=== PATIENT | male | born 1980 | race Caucasian/White ===

== ENCOUNTER 2016-11-03 19:42 | Emergency (ER) | payer BC ==
[~2016-11-03 19:42] MED LIST: Ativan 2 MG/1 ML VIAL IV ONE
[2016-11-03] MEDS ORDERED: DIPRIVAN 200 MG/20 ML IV ONE (19:56)
[2016-11-03] MEDS ORDERED: DIPRIVAN 100ML BOTTLE 100 ML IV ONE (19:56)
[2016-11-03] MEDS ORDERED: Quelicin Fliptop 200 MG/10 ML IV ONE (19:56)
[2016-11-03] MEDS ORDERED: Zemuron 100 MG/10 ML IV ONE (19:56)
[2016-11-03] MEDS ORDERED: Amidate 20 MG/10 ML IV ONE (19:56)
[2016-11-03] MEDS ORDERED: Sodium Chloride 0.9% 1000 ML 1,000 ML IV SCH (20:30)
[2016-11-03 20:42] LABS: BASOPHIL % 0.3 % (0.0-0.4); Eosinophil % 2.6 % (0.00-5.0); Granulocytes % 67.4 % (36.0-66.0); Lymphocytes % 21.6 % (24.0-44.0); Mean Cell Volume 88.4 fl (78-100); Mean Corpuscular Hemoglobin 29.3 pg (26-32); Mean Platelet Volume 10.5 fl (6-9.5); Monocytes % 8.1 % (0.0-12.0); Platelet Count 247 K/mm3 (150-450); Red Blood Count 4.91 M/mm3 (4.1-5.6); Red Cell Distribution Width 13.1 % (11.5-14.0); White Blood Count 7.3 K/mm3 (4.0-10.5)
[2016-11-03 20:43] LABS: INR 1.04 (0.8-3.0); PROTIME 11.6 SECONDS (8.83-12.87)
[2016-11-03 20:45] LABS: PTT 32.4 SECONDS (24.1-36.1)
[2016-11-03] MEDS ORDERED: Ativan 2 MG/1 ML VIAL ONE ×2 (20:51→22:02)
--- NOTE | 2016-11-03 20:51 | ERPHSYRPT ---
- History of Present Illness Time Seen by Provider: 11/03/16 19:42 Source: EMS Exam Limitations: clinical condition Patient Subjective Stated Complaint: 1916 pt was at home with family when he began choking the family began himleich and chest thrust without releif there was a time when he was not breathing ems arr and tried to intubate but pt was gagging then begaN TO HAVE SEIZURE LIKE ACTIVITY Triage Nursing Assessment: PT ARR UNRSPONSIVE THEN BEGAN SEIZING Physician History: Pt. arrived with GCS 7 and sonorous resp effort. He is unable to protect his airway despite adequate oxygenation. No awareness by EMS, who are also family, that he uses chronic pain meds or street drugs. Unknown downtime or hypoxic timeframe. EMS reports arrival to find pt. unresponsive, but were unable to intubate at the scene. Pt. intubated on arrival. O2 sats 100% with Ambu. Family arrived and reported that after he began to choke, they laid him on floor with Heimlich maneuvers attempted per family members. No relief and pt. unresponsive without respiratory efforts. EMS was called. Pt. noted by them to have seizure-like activity, which continued on arrival here. Timing/Duration: hour(s) (1) Activities at Onset: other (eating scalloped potatoes) Severity of Dyspnea-Max: severe Severity of Dyspnea-Current: severe Possible Cause: no prior episodes Modifying Factors: Improves With: other (choking after ) Associated Symptoms: No chest pain/discomfort International travel in last 2 weeks: No Allergies/Adverse Reactions: fentanyl Allergy (Verified 11/03/16 20:19) Home Medications: No Home Meds 1 ea POLI ERICKSON 04/15/15 [History] Hx Tetanus, Diphtheria Vaccination/Date Given: Yes (UNKNOWN) Hx Influenza Vaccination/Date Given: Yes Hx Pneumococcal Vaccination/Date Given: Yes - Review of Systems Constitutional: No Symptoms Eyes: No Symptoms Ears, Nose, & Throat: No Symptoms Respiratory: Cough Cardiac: No Symptoms, No Chest Pain Abdominal/Gastrointestinal: No Symptoms Musculoskeletal: No Symptoms Skin: No Symptoms Neurological: No Symptoms Psychological: No Symptoms Endocrine: No Symptoms Hematologic/Lymphatic: No Symptoms Immunological/Allergic: No Symptoms - Past Medical History Pertinent Past Medical History: Yes Neurological History: No Pertinent History ENT History: No Pertinent History Cardiac History: No Pertinent History Respiratory History: No Pertinent History Endocrine Medical History: No Pertinent History Musculoskeletal History: Other GI Medical History: No Pertinent History History: No Pertinent History Psycho-Social History: No Pertinent History Male Reproductive Disorders: No Pertinent History Other Medical History: BACK PROBLEMS - Past Surgical History Past Surgical History: No - Social History Smoking Status: Unknown if ever smoked Exposure to second hand smoke: No Drug Use: none Patient Lives Alone: No - Nursing Vital Signs Nursing Vital Signs: Initial Vital Signs Temperature 97.5 F Temperature Source Oral Pulse Rate 80 Respiratory Rate 16 Blood Pressure [] 122/61 Pain Intensity 0 - Physical Exam General Appearance: severe distress, lethargy, other (unresponsice) Eye Exam: PERRL/EOMI, eyes nml inspection Ears, Nose, Throat Exam: normal ENT inspection, normal pharynx Neck Exam: normal inspection, non-tender, supple, full range of motion Respiratory Exam: airway intact, other (sonorous resp with gurgling secretions) Cardiovascular/Chest Exam: normal heart sounds, regular rate/rhythm, normal peripheral pulses Abdominal/Gastrointestinal Exam: soft, normal bowel sounds Extremity Exam: non-tender, normal range of motion, normal inspection Neurologic Exam: No oriented x 3 Skin Exam: normal color Lymphatic Exam: adenopathy SpO2 Interpretation: normal SpO2: 89 Procedures - Intubation Intubation Indications: airway protection Intubation Method: orotracheal, glidescope Tube Size (cm): 7.5 Medications: Lorazepam (Ativan), Etomidate, Succinylcholine C-Spine: maintained Endotracheal Tube Confirmation: bilateral breath sounds, positive end tidal CO2 , good rise & fall of chest Intubation Complications: no complications Performed By: ED Physician Post Intubation Xray: Yes - Course Nursing assessment & vital signs reviewed: Yes EKG Interpreted by Me: RATE, Sinus Tach (114), NORMAL AXIS, Right Bundle Branch Block, Other (No acute ischemic changes. No old ECG for comparison) - CT Exams Head CT Interpretation: Negative, Tele-radiologist Report Ordered Tests: Active Orders 24 hr Category Date Time Status Ramp Agent STAT Care 11/03/16 20:29 Active Catheter-[place] STAT Care 11/03/16 20:29 Active EKG-ER Only STAT Care 11/03/16 20:29 Active Gastric Tube Insertion STAT Care 11/04/16 01:28 Active IV Insertion STAT Care 11/03/16 20:29 Active NPO (ED) STAT Care 11/03/16 20:29 Active Pulse Oximetry (ED) STAT Care 11/03/16 20:29 Active CHEST 1 VIEW (PORTABLE) Stat Exams 11/03/16 20:00 Taken ACETAMINOPHEN Stat Lab 11/03/16 20:15 Completed ARTERIAL BLOOD GASES Urgent Lab 11/03/16 19:54 Completed CBC W DIFF Stat Lab 11/03/16 20:15 Completed NT PRO BNP Stat Lab 11/03/16 20:15 Completed PROTIME WITH INR Stat Lab 11/03/16 20:15 Completed PTT Stat Lab 11/03/16 20:15 Completed SALICYLATE Stat Lab 11/03/16 20:15 Completed TROPONIN Stat Lab 11/03/16 20:15 Completed UA W/ MICROSCOPIC Stat Lab 11/03/16 21:15 Completed Urine Triage Profile Stat Lab 11/03/16 21:15 Completed Medication Summary Generic Name Dose Route Start Last Admin Trade Name Freq PRN Reason Stop Dose Admin Sodium Chloride 1,000 mls @ 100 mls/hr 11/04/16 04:15 11/03/16 20:40 Sodium Chloride 0.9% 1000 Ml IV 12/04/16 04:14 100 mls/hr .Q10H GERALDO Administration Discontinued Medications Generic Name Dose Route Start Last Admin Trade Name Freq PRN Reason Stop Dose Admin Fosphenytoin Sodium Confirm 11/03/16 21:09 Cerebyx 50 Mg/Ml Administered 11/03/16 21:10 Dose 1,000 mg .ROUTE .STK-MED ONE Hydromorphone HCl Confirm 11/03/16 22:10 Hydromorphone 1 Mg/Ml Ampule Administered 11/03/16 22:11 Dose 1 mg .ROUTE .STK-MED ONE Hydromorphone HCl 1 mg 11/03/16 22:12 11/04/16 04:01 Hydromorphone 1 Mg/Ml Ampule IV 11/03/16 22:13 Not Given STAT ONE Hydromorphone HCl Confirm 11/03/16 22:42 Hydromorphone 1 Mg/Ml Ampule Administered 11/03/16 22:43 Dose 1 mg .ROUTE .STK-MED ONE Sodium Chloride 1,000 mls @ 100 mls/hr 11/03/16 20:30 11/03/16 19:53 Sodium Chloride 0.9% 1000 Ml IV 12/03/16 20:29 100 mls/hr .Q10H GERALDO Administration Sodium Chloride Confirm 11/03/16 21:12 Sodium Chloride 0.9% 100 Ml Ivpb Administered 11/03/16 21:13 Dose 100 mls @ ud IV .STK-MED ONE Fosphenytoin Sodium 1,000 mg/ 120 mls @ 240 mls/hr 11/03/16 21:13 11/03/16 21 :16 Sodium Chloride IV 11/03/16 21:42 240 mls/hr STAT ONE Administration Lorazepam Confirm 11/03/16 20:51 Ativan 2 Mg/1 Ml Vial Administered 11/03/16 20:52 Dose 2 mg .ROUTE .STK-MED ONE Lorazepam Confirm 11/03/16 22:02 Ativan 2 Mg/1 Ml Vial Administered 11/03/16 22:03 Dose 2 mg .ROUTE .STK-MED ONE Ondansetron HCl 4 mg 11/03/16 22:12 11/04/16 04:02 Zofran 4 Mg/2 Ml Vial IV 11/03/16 22:13 Not Given STAT ONE Pantoprazole Sodium 40 mg 11/03/16 22:12 11/04/16 04:02 Protonix 40 Mg Iv IV 11/03/16 22:13 Not Given STAT ONE Phenytoin Sodium Confirm 11/03/16 20:55 Dilantin 100 Mg/2 Ml Administered 11/03/16 20:56 Dose 100 mg .ROUTE .STK-MED ONE Lab/Rad Data: Laboratory Result Diagrams 11/03/16 20:15 Laboratory Results 11/03/16 11/03/16 11/03/16 Range/Units 21:15 21:15 20:15 WBC (4.0-10.5) K/mm3 RBC (4.1-5.6) M/mm3 Hgb (12.5-18.0) gm/dl Hct (42-50) % MCV (78-100) fl MCH (26-32) pg MCHC (32-36) g/dl RDW (11.5-14.0) % Plt Count (150-450) K/mm3 MPV (6-9.5) fl Gran % (36.0-66.0) % Lymphocytes % (24.0-44.0) % Monocytes % (0.0-12.0) % Eosinophils % (0.00-5.0) % Basophils % (0.0-0.4) % Basophils # (0-0.4) INR 1.04 (0.8-3.0) PTT 32.4 (24.1-36.1) SECONDS Puncture Site pCO2 (35-45) mmHg pO2 (75-100) mmHg Base Excess (-2.0-2.0) O2 Saturation (94-100) g/dF ABG pH (7.35-7.45) ABG HCO3 (22-28) ABG O2 Sat (Measured) (95-100) % Javier Test A-a Gradient a/A Ratio Hemoglobin Carboxyhemoglobin (0.0-6.9) % THgb Methemoglobin (1.4-1.5) % Potassium (3.5-5.1) Temperature C POC O2 Flow Rate % Troponin I (0.000-0.056) ng/ml NT-Pro-B Natriuret Pep (0-125) pg/ml Ur Collection Type CLEAN CATCH Urine Color YELLOW (YELLOW) Urine Appearance CLEAR (CLEAR) Urine pH 6.0 (5-6) Ur Specific Ajo 1.025 (1.005-1.025) Urine Protein NEGATIVE (Negative) Urine Glucose (UA) NEGATIVE (NEGATIVE) mg/dL Urine Ketones NEGATIVE (NEGATIVE) Urine Nitrite NEGATIVE (NEGATIVE) Urine Bilirubin NEGATIVE (NEGATIVE) Urine Urobilinogen 0.2 (0-1) mg/dL Urine WBC (Auto) NEGATIVE (NEGATIVE) Urine RBC (Auto) TRACE NON-HEM (0-5) Brennen/ul Urine Microscopic RBC 0-2 (0-2) /HPF Ur Epithelial Cells FEW (FEW) /HPF Salicylates (2.8-20.0) mg/dl Urine Opiates Level NEG. (NEGATIVE) Ur Methadone NEG. (NEGATIVE) Acetaminophen (10-30) ug/ml Urine Barbiturates NEG. (NEGATIVE) Ur Phencyclidine (PCP) NEG. (NEGATIVE) Urine Amphetamine NEG. (NEGATIVE) U Benzodiazepine Level POS. (NEGATIVE) Urine Cocaine NEG. (NEGATIVE) Urine Marijuana (THC) NEG. (NEGATIVE) Specimen Received 11/03/16:212911/03/16 11/03/16 11/03/16 Range/Units 20:15 20:15 19:54 WBC 7.3 (4.0-10.5) K/mm3 RBC 4.91 (4.1-5.6) M/mm3 Hgb 14.4 (12.5-18.0) gm/dl Hct 43.4 (42-50) % MCV 88.4 (78-100) fl MCH 29.3 (26-32) pg MCHC 33.2 (32-36) g/dl RDW 13.1 (11.5-14.0) % Plt Count 247 (150-450) K/mm3 MPV 10.5 H (6-9.5) fl Gran % 67.4 H (36.0-66.0) % Lymphocytes % 21.6 L (24.0-44.0) % Monocytes % 8.1 (0.0-12.0) % Eosinophils % 2.6 (0.00-5.0) % Basophils % 0.3 (0.0-0.4) % Basophils # 0.02 (0-0.4) INR (0.8-3.0) PTT (24.1-36.1) SECONDS Puncture Site RIGHT BRACHIAL pCO2 38 (35-45) mmHg pO2 255 H* (75-100) mmHg Base Excess 2.4 H (-2.0-2.0) O2 Saturation 97.6 (94-100) g/dF ABG pH 7.45 (7.35-7.45) ABG HCO3 26.4 (22-28) ABG O2 Sat (Measured) 98.9 (95-100) % Javier Test NOT APPLICABLE A-a Gradient 411 a/A Ratio 0.38 Hemoglobin 14.1 Carboxyhemoglobin 0.5 (0.0-6.9) % THgb Methemoglobin 0.8 L (1.4-1.5) % Potassium 3.7 (3.5-5.1) Temperature 37.0 C POC O2 Flow Rate 100 % Troponin I < 0.017 (0.000-0.056) ng/ml NT-Pro-B Natriuret Pep 45 (0-125) pg/ml Ur Collection Type Urine Color (YELLOW) Urine Appearance (CLEAR) Urine pH (5-6) Ur Specific Ajo (1.005-1.025) Urine Protein (Negative) Urine Glucose (UA) (NEGATIVE) mg/dL Urine Ketones (NEGATIVE) Urine Nitrite (NEGATIVE) Urine Bilirubin (NEGATIVE) Urine Urobilinogen (0-1) mg/dL Urine WBC (Auto) (NEGATIVE) Urine RBC (Auto) (0-5) Brennen/ul Urine Microscopic RBC (0-2) /HPF Ur Epithelial Cells (FEW) /HPF Salicylates < 2.8 L (2.8-20.0) mg/dl Urine Opiates Level (NEGATIVE) Ur Methadone (NEGATIVE) Acetaminophen < 2.0 L (10-30) ug/ml Urine Barbiturates (NEGATIVE) Ur Phencyclidine (PCP) (NEGATIVE) Urine Amphetamine (NEGATIVE) U Benzodiazepine Level (NEGATIVE) Urine Cocaine (NEGATIVE) Urine Marijuana (THC) (NEGATIVE) Specimen Received - Progress Progress: improved Air Movement: good Blood Culture(s) Obtained: No Antibiotics given: No Discussed with Dr.: Other (No Neurolgist at [facility], so referred elsewhere for transfer. Weather precludes helicopter transfer. ) Counseled pt/family regarding: lab results, diagnosis, need for follow-up ( discussed with family. ), rad results - Departure Time of Disposition: 23:55 Departure Disposition: Transfer (To [facility] ICU for Dr. Amaral) Clinical Impression: Choking episode, Seizure, Hypoxic encephalopathy Condition: Stable Critical Care Time: Yes Critical Care Time(excluding separately billable procedures): 75-104 minutes Referrals: CHAPO RODRIGUEZ [Primary Care Provider] -
[2016-11-03] MEDS ORDERED: Dilantin 100 MG/2 ML ONE (20:55)
[2016-11-03 21:04] LABS: ACETAMINOPHEN < 2.0 ug/ml (10-30); TROPONIN < 0.017 ng/ml (0.000-0.056)
[2016-11-03] MEDS ORDERED: cereBYX 50 MG/ML ONE (21:09)
[2016-11-03] MEDS ORDERED: Sodium Chloride 0.9% 100 ML IVPB 100 ML IV ONE (21:12)
[2016-11-03 21:13] LABS: A-aADO2 411; ARTERIAL BLD GAS O2 SATURATION 98.9 % (95-100); ARTERIAL BLOOD GAS BASE EXCESS 2.4 (-2.0-2.0); ARTERIAL BLOOD GAS FIO2 100 %; ARTERIAL BLOOD GAS PO2 255 mmHg (75-100); ARTERIAL BLOOD GAS pH 7.45 (7.35-7.45)
[2016-11-03] MEDS ORDERED: cereBYX 50 MG/ML*** 1,000 MG in Sodium Chloride 0.9% 100 ML IVPB 100 ML IV ONE (21:13)
[2016-11-03 21:47] LABS: COMPLETE URINE MICROSCOPIC? YES; Collection Type CLEAN CATCH; Epithelial Cells FEW /HPF (FEW)
[2016-11-03] MEDS ORDERED: Hydromorphone 1 mg/ml Ampule ONE ×2 (22:10→22:42)
[2016-11-03] MEDS ORDERED: PROTONIX 40 MG IV IV ONE (22:12)
[2016-11-03] MEDS ORDERED: Hydromorphone 1 mg/ml Ampule IV ONE (22:12)
[2016-11-03] MEDS ORDERED: Zofran 4 MG/2 ML VIAL IV ONE (22:12)
[2016-11-03 22:30] VITALS: BP 122/61; PULSE 80
[2016-11-04] MEDS ORDERED: Sodium Chloride 0.9% 1000 ML 1,000 ML IV SCH (04:15)
[2016-11-04 07:05] VITALS: O2SAT 89
--- NOTE | 2016-11-04 08:05 | XRAY ---
Indication: Unresponsive. Multiple contiguous axial images obtained through the head without contrast. Comparison: October 26, 2007. Again normal appearing brain parenchyma, ventricles, and bony calvarium. Visualized paranasal sinuses and mastoid air cells are pneumatized and clear. Impression: Stable normal CT head without contrast exam. CTDI 67.80
--- NOTE | 2016-11-04 08:08 | XRAY ---
Indication: Intubation. Comparison: September 21, 2014. Portable chest demonstrates endotracheal tube tip approximately 3 cm above the severo. Lungs underinflated accentuating the cardiomegaly structures. There is asymmetric diffuse left lung interstitial opacities. Heart is not enlarged. Bony thorax intact. Impression: 1. Status post intubation with good endotracheal tube placement. 2. Underinflated chest with left lung interstitial opacities, infiltrates versus atelectasis.
== END 2016-11-03 23:09 | disposition short-term general hospital (02) ==
LOC: ED 19:42
DX: R09.89 Other specified symptoms and signs involving the circulatory and respiratory systems (principal); R56.9 Unspecified convulsions; G93.1 Anoxic brain damage, not elsewhere classified; R53.83 Other fatigue; R59.9 Enlarged lymph nodes, unspecified
CPT/HCPCS: 31500; 36000; 36415; 36600; 51702; 70450; 71010; 80307; 81000; 82375; 82803; 83880; 84484; 85025; 85610; 85730; 93005; 93041; 94002; 94799; 96360; 96361; 96365; 96367; 99285; 99291; 99292; G0481; J0330; J1165; J1170; J2060; J2704; Q2009

== ENCOUNTER 2020-03-29 05:40 | Emergency (ER) | payer OTHER ==
[2020-03-29] MEDS ORDERED: BABY ASPIRIN 81 MG CHEW PO ONE (06:08)
--- NOTE | 2020-03-29 06:08 | ERPHSYRPT ---
- History of Present Illness Source: patient Exam Limitations: no limitations Patient Subjective Stated Complaint: pt states he had sudden onset of shortness of breath this morning while driving to work. states he coughed a few times yesterday and has been coughing this morning. Triage Nursing Assessment: pt alert and oriented, answers questions approp. pt ambulatory with steady gait noted. pt short of breath, lung sounds clear bilat. skin warm and dry. heart rate 90 on monitor- sinus rhythm. Timing/Duration: today, constant Activities at Onset: rest Severity of Dyspnea-Max: moderate Severity of Dyspnea-Current: moderate Possible Cause: no prior episodes Modifying Factors: Improves With: nothing Associated Symptoms: cough, chest pain/discomfort, No edema, No fever, No insomnia, No loss of appetite, No wheezing, No calf pain, No heart racing, No leg swelling, No muscle spasms feet, No muscle spasms hands Hx Tetanus, Diphtheria Vaccination/Date Given: Yes (2017) Hx Influenza Vaccination/Date Given: No Hx Pneumococcal Vaccination/Date Given: No Immunizations Up to Date: Yes <IVONNE COREY - Last Filed: 03/29/20 06:59> <STAR BRIZUELA - Last Filed: 03/29/20 21:09> - History of Present Illness Time Seen by Provider: 03/29/20 05:59 Physician History: Acute onset of SOB while going to work. Hurts to breathe. No fever. Mild Dry cough. No sputum (IVONNE COREY) Allergies/Adverse Reactions: fentanyl Allergy (Severe, Verified 03/29/20 05:57) Difficulty Breathing Iodinated Contrast Media Adverse Reaction (Mild, Verified 03/29/20 08:09) Hives Home Medications: No Home Meds [No Home Meds] 1 [facility] UD 04/15/15 [History] Travel Risk - International Travel Have you traveled outside of the country in past 3 weeks: No - Coronavirus Screening Are you exhibiting any of the following symptoms?: Yes Symptoms: Cough: New Onset, Shortness of Breath Close contact with a COVID-19 positive Pt in past 14-21 Days: No <IVONNE COREY - Last Filed: 03/29/20 06:59> - Review of Systems Constitutional: No Fever, No Chills Eyes: No Symptoms Ears, Nose, & Throat: No Symptoms Respiratory: Cough, Dyspnea Cardiac: No Chest Pain, No Edema, No Syncope Abdominal/Gastrointestinal: No Abdominal Pain, No Nausea, No Vomiting, No Diarrhea Genitourinary Symptoms: No Dysuria Musculoskeletal: No Back Pain, No Neck Pain Skin: No Rash Neurological: No Dizziness, No Focal Weakness, No Sensory Changes Psychological: No Symptoms Endocrine: No Symptoms All Other Systems: Reviewed and Negative <IVONNE COREY - Last Filed: 03/29/20 06:59> - Past Medical History Pertinent Past Medical History: Yes Neurological History: No Pertinent History ENT History: No Pertinent History Cardiac History: No Pertinent History Respiratory History: No Pertinent History Endocrine Medical History: No Pertinent History Musculoskeletal History: Other GI Medical History: No Pertinent History History: No Pertinent History Psycho-Social History: No Pertinent History Male Reproductive Disorders: No Pertinent History Other Medical History: BACK PROBLEMS - Past Surgical History Past Surgical History: No - Social History Smoking Status: Never smoker Exposure to second hand smoke: No Drug Use: none Patient Lives Alone: No <IVONNE COREY - Last Filed: 03/29/20 06:59> - Physical Exam General Appearance: no apparent distress, alert Eye Exam: PERRL/EOMI Neck Exam: normal inspection, supple Respiratory Exam: normal breath sounds, lungs clear, airway intact, No chest tenderness, No respiratory distress, No diminished breath sounds, No accessory muscle use, No prolonged expirations, No crackles/rales, No rhonchi, No wheezing Cardiovascular/Chest Exam: normal heart sounds, regular rate/rhythm Abdominal/Gastrointestinal Exam: soft, No tenderness, No distention, No mass Extremity Exam: non-tender, normal range of motion, normal inspection, no calf tenderness, no pedal edema Neurologic Exam: alert, oriented x 3, cooperative, clinical audiologist II-XII nml as tested, sensation nml, No motor deficits Skin Exam: normal color, warm, No dry Lymphatic Exam: No adenopathy SpO2 Interpretation: normal SpO2: 100 O2 Delivery: Room Air <IVONNE COREY Last Filed: 03/29/20 06:59> - Nursing Vital Signs Nursing Vital Signs: Initial Vital Signs Temperature 98.1 F 03/29/20 05:41 Pulse Rate 91 H 03/29/20 05:41 Respiratory Rate 24 03/29/20 05:41 Blood Pressure 137/83 03/29/20 05:41 O2 Sat by Pulse Oximetry 100 03/29/20 05:41 Pain Scale Pain Intensity 0 - Course EKG Interpreted by Me: RATE (79), Sinus Rhythm, NORMAL AXIS, NORMAL INTERVALS, NORMAL QRS, Non-specific ST Changes <IVONNE COREY - Last Filed: 03/29/20 06:59> - Course Nursing assessment & vital signs reviewed: Yes - CT Exams Chest CT Interpretation: Discussed w/radiologist, Other (PE noted posterior RUL-small nonocclusive) <STAR BRIZUELA - Last Filed: 03/29/20 21:09> Ordered Tests: Active Orders 24 hr Category Date Time Status Sulphate Tester STAT Care 03/29/20 06:09 Completed EKG-ER Only STAT Care 03/29/20 06:08 Completed IV Insertion STAT Care 03/29/20 06:08 Completed Oxygen-ED Only Nasal Cannula 2 lpm Care 03/29/20 06:08 Completed Pulse Oximetry (ED) STAT Care 03/29/20 06:08 Completed CHEST 1 VIEW (PORTABLE) Stat Exams 03/29/20 06:09 Completed CHEST WITH CONTRAST [CT] Stat Exams 03/29/20 06:57 Completed BLOOD CULTURE Stat Lab 03/29/20 06:39 Received CBC W DIFF Stat Lab 03/29/20 06:10 Completed CK-Creatinine Phosphokinase Stat Lab 03/29/20 06:10 Completed CMP Stat Lab 03/29/20 06:10 Completed CULTURE,URINE Stat Lab 03/29/20 08:00 Ordered D-DIMER QUANTITATIVE Stat Lab 03/29/20 06:10 Completed Lactic Acid Stat Lab 03/29/20 06:20 Completed NT PRO BNP Stat Lab 03/29/20 06:10 Completed PROTIME WITH INR Stat Lab 03/29/20 06:10 Completed PTT Stat Lab 03/29/20 06:10 Completed TROPONIN Stat Lab 03/29/20 06:10 Completed UA W/RFX UR CULTURE Stat Lab 03/29/20 Completed Medication Summary Discontinued Medications Generic Name Dose Route Start Last Admin Trade Name Freq PRN Reason Stop Dose Admin Aspirin 324 mg 03/29/20 06:08 03/29/20 06:20 Baby Aspirin 81 Mg Chew PO 03/29/20 06:09 324 mg STAT ONE Administration Diphenhydramine HCl 25 mg 03/29/20 07:39 03/29/20 07:45 Benadryl 50 Mg/Ml IV 03/29/20 07:40 25 mg STAT ONE Administration Diphenhydramine HCl Confirm 03/29/20 07:43 Benadryl 50 Mg/Ml Administered 03/29/20 07:44 Dose 50 mg .ROUTE .STK-MED ONE Enoxaparin Sodium 130 mg 03/29/20 07:00 03/29/20 07:47 Enoxaparin Sodium 1 mg/kg (130 mg) 03/29/20 07:01 Not Given SQ STAT ONE Enoxaparin Sodium Confirm 03/29/20 07:35 Enoxaparin Sodium Administered 03/29/20 07:36 Dose 120 mg SQ .STK-MED ONE Enoxaparin Sodium 120 mg 03/29/20 07:39 03/29/20 07:41 Enoxaparin Sodium SQ 03/29/20 07:40 120 mg 1XONLY ONE Administration Lab/Rad Data: Laboratory Result Diagrams 03/29/20 06:10 03/29/20 06:10 Laboratory Results 03/29/20 03/29/20 03/29/20 Range/Units Unknown 06:20 06:10 WBC (4.0-10.5) K/mm3 RBC (4.1-5.6) M/mm3 Hgb (12.5-18.0) gm/dl Hct (42-50) % MCV (78-100) fl MCH (26-32) pg MCHC (32-36) g/dl RDW (11.5-14.0) % Plt Count (150-450) K/mm3 MPV (7.5-11.0) fl Gran % (36.0-66.0) % Eos # (Auto) (0-0.5) Absolute Lymphs (auto) (1.0-4.6) Absolute Monos (auto) (0.0-1.3) Lymphocytes % (24.0-44.0) % Monocytes % (0.0-12.0) % Eosinophils % (0.00-5.0) % Basophils % (0.0-0.4) % Absolute Granulocytes (1.4-6.9) Basophils # (0-0.4) PT 11.8 (8.83-12.87) SECONDS INR 1.04 (0.8-3.0) APTT 31.1 (24.1-36.1) SECONDS D-Dimer 905 H* (215-500) ng/mL Sodium (137-145) mmol/L Potassium (3.5-5.1) mmol/L Chloride (98-107) mmol/L Carbon Dioxide (22-30) mmol/L Anion Gap (5-15) MEQ/L BUN (9-20) mg/dL Creatinine (0.66-1.25) mg/dL Estimated GFR ML/MIN Glucose (74-106) mg/dL Lactic Acid 2.0 (0.4-2.0) Calcium (8.4-10.2) mg/dL Total Bilirubin (0.2-1.3) mg/dL AST (17-59) U/L ALT (0-50) U/L Alkaline Phosphatase (38-126) U/L Creatine Kinase (55-170) U/L Troponin I (0.000-0.034) ng/mL NT-Pro-B Natriuret Pep (0-450) pg/mL Serum Total Protein (6.3-8.2) g/dL Albumin (3.5-5.0) g/dL Urine Color YELLOW (YELLOW) Urine Appearance CLEAR (CLEAR) Urine pH 5.0 (5-6) Ur Specific Gravelly 1.032 (1.005-1.025) Urine Protein NEGATIVE (Negative) Urine Ketones NEGATIVE (NEGATIVE) Urine Blood NEGATIVE (0-5) Brennen/ul Urine Nitrite NEGATIVE (NEGATIVE) Urine Bilirubin NEGATIVE (NEGATIVE) Urine Urobilinogen NEGATIVE (0-1) mg/dL Ur Leukocyte Esterase NEGATIVE (NEGATIVE) Urine WBC (Auto) 0-2 (0-5) /HPF Urine RBC (Auto) NONE (0-2) /HPF U Epithel Cells (Auto) NONE (FEW) /HPF Urine Bacteria (Auto) NONE (NEGATIVE) /HPF Urine Mucus (Auto) SLIGHT (NEGATIVE) /HPF Urine Culture Reflexed NO (NO) Urine Glucose NEGATIVE (NEGATIVE) mg/dL 03/29/20 03/29/20 Range/Units 06:10 06:10 WBC 6.9 (4.0-10.5) K/mm3 RBC 5.38 (4.1-5.6) M/mm3 Hgb 16.0 (12.5-18.0) gm/dl Hct 48.3 (42-50) % MCV 89.8 (78-100) fl MCH 29.7 (26-32) pg MCHC 33.1 (32-36) g/dl RDW 13.2 (11.5-14.0) % Plt Count 290 (150-450) K/mm3 MPV 10.0 (7.5-11.0) fl Gran % 76.1 H (36.0-66.0) % Eos # (Auto) 0.16 (0-0.5) Absolute Lymphs (auto) 1.10 (1.0-4.6) Absolute Monos (auto) 0.37 (0.0-1.3) Lymphocytes % 15.9 L (24.0-44.0) % Monocytes % 5.4 (0.0-12.0) % Eosinophils % 2.3 (0.00-5.0) % Basophils % 0.3 (0.0-0.4) % Absolute Granulocytes 5.26 (1.4-6.9) Basophils # 0.02 (0-0.4) PT (8.83-12.87) SECONDS INR (0.8-3.0) APTT (24.1-36.1) SECONDS D-Dimer (215-500) ng/mL Sodium 137 (137-145) mmol/L Potassium 3.8 (3.5-5.1) mmol/L Chloride 104 (98-107) mmol/L Carbon Dioxide 29 (22-30) mmol/L Anion Gap 7.9 (5-15) MEQ/L BUN 16 (9-20) mg/dL Creatinine 1.12 (0.66-1.25) mg/dL Estimated GFR > 60.0 ML/MIN Glucose 133 H (74-106) mg/dL Lactic Acid (0.4-2.0) Calcium 9.2 (8.4-10.2) mg/dL Total Bilirubin 0.40 (0.2-1.3) mg/dL AST 19 (17-59) U/L ALT 21 (0-50) U/L Alkaline Phosphatase 97 (38-126) U/L Creatine Kinase 69 (55-170) U/L Troponin I < 0.012 (0.000-0.034) ng/mL NT-Pro-B Natriuret Pep 29.6 (0-450) pg/mL Serum Total Protein 7.4 (6.3-8.2) g/dL Albumin 4.1 (3.5-5.0) g/dL Urine Color (YELLOW) Urine Appearance (CLEAR) Urine pH (5-6) Ur Specific Gravelly (1.005-1.025) Urine Protein (Negative) Urine Ketones (NEGATIVE) Urine Blood (0-5) Brennen/ul Urine Nitrite (NEGATIVE) Urine Bilirubin (NEGATIVE) Urine Urobilinogen (0-1) mg/dL Ur Leukocyte Esterase (NEGATIVE) Urine WBC (Auto) (0-5) /HPF Urine RBC (Auto) (0-2) /HPF U Epithel Cells (Auto) (FEW) /HPF Urine Bacteria (Auto) (NEGATIVE) /HPF Urine Mucus (Auto) (NEGATIVE) /HPF Urine Culture Reflexed (NO) Urine Glucose (NEGATIVE) mg/dL - Progress Air Movement: fair <IVONNE COREY - Last Filed: 03/29/20 06:59> - Progress Progress: improved Air Movement: good Blood Culture(s) Obtained: No Antibiotics given: No Discussed with : Juana Will see patient in: office Counseled pt/family regarding: lab results, diagnosis, need for follow-up, rad results <STAR BRIZUELA - Last Filed: 03/29/20 21:09> - Progress Progress Note: 03/29/20 06:59 Care of the pt transferred to Dr brizuela (IVONNE COREY) Pt better. NO O2 requirement. O2 sats [address] chest neg for any acute, no PE. Mentions small HH, fatty liver and splenomegaly. 03/29/20 08:31 03/29/20 21:07 Late entry, Dr. Garcia called to say that he does see a PE small nonocclusive RUL. Discussed with Dr. Zepeda and sts pt can be dc'd home and followed up with Dr. Benton in a few days. REcommends anticoag such as eliquis. Pt in agreement to go home. (STAR BRIZUELA) <IVONNE COREY - Last Filed: 03/29/20 06:59> - Departure Departure Disposition: Home Critical Care Time: Yes Critical Care Time(excluding separately billable procedures): Critical 30-74 mins <STAR BRIZUELA - Last Filed: 03/29/20 21:09> - Departure Clinical Impression: Dyspnea, Pulmonary embolus, right Condition: Stable Referrals: ROBBY GLYNN FNP [Primary Care Provider] - Instructions: Shortness of Breath (Dyspnea) (DC) Additional Instructions: MOnitor closely. Start Eliquius tomorrow. Follow up with Dr. Benton in 1-2 days for recheck. Return to ER if worse. Forms: Work/School Release Form Prescriptions: Apixaban [Eliquis] 10 mg PO BID 7 Days #30 tablet
[2020-03-29 06:47] LABS: Absolute Neutrophil Ct (ANC) 5.26 (1.4-6.9); BASOPHIL % 0.3 % (0.0-0.4); Basophil (Absolute #) 0.02 (0-0.4); Eosinophil % 2.3 % (0.00-5.0); Eosinophil (Absolute #) 0.16 (0-0.5); Hematocrit 48.3 % (42-50); Lymphocytes % 15.9 % (24.0-44.0); Mean Cell Volume 89.8 fl (78-100); Mean Corpuscular Hemoglobin 29.7 pg (26-32); Mean Corpuscular Hgb Concent. 33.1 g/dl (32-36); Monocyte (Absolute #) 0.37 (0.0-1.3); Monocytes % 5.4 % (0.0-12.0); Neutrophil % 76.1 % (36.0-66.0); Platelet Count 290 K/mm3 (150-450); Red Blood Count 5.38 M/mm3 (4.1-5.6); Red Cell Distribution Width 13.2 % (11.5-14.0); White Blood Count 6.9 K/mm3 (4.0-10.5)
[2020-03-29 06:53] LABS: INR 1.04 (0.8-3.0); PROTIME 11.8 SECONDS (8.83-12.87)
[2020-03-29 06:55] LABS: PTT 31.1 SECONDS (24.1-36.1)
[2020-03-29] MEDS ORDERED: ENOXAPARIN SODIUM SQ ONE ×3 (07:00→07:39)
[2020-03-29 07:10] LABS: ALBUMIN 4.1 g/dL (3.5-5.0); ALKALINE PHOSPHATASE 97 U/L (38-126); ANION GAP 7.9 MEQ/L (5-15); BLOOD UREA NITROGEN 16 mg/dL (9-20); CHLORIDE 104 mmol/L (98-107); CK-Creatinine Phosphokinase 69 U/L (55-170); Calcium 9.2 mg/dL (8.4-10.2); Carbon Dioxide 29 mmol/L (22-30); Creatinine 1 1.12 mg/dL (0.66-1.25); EST GLOMERULAR FILTRATION RATE > 60.0 ML/MIN; Glucose 133 mg/dL (74-106); NT PRO BNP 29.6 pg/mL (0-450); Potassium 3.8 mmol/L (3.5-5.1); SGOT/AST 19 U/L (17-59); SGPT/ALT 21 U/L (0-50); SODIUM 137 mmol/L (137-145); Total Protein 7.4 g/dL (6.3-8.2)
[2020-03-29 07:33] LABS: TROPONIN < 0.012 ng/mL (0.000-0.034)
[2020-03-29] MEDS ORDERED: BENADRYL 50 MG/ML IV ONE (07:39)
[2020-03-29] MEDS ORDERED: BENADRYL 50 MG/ML ONE (07:43)
[2020-03-29 08:02] VITALS: O2SAT 98
--- NOTE | 2020-03-29 08:51 | XRAY ---
Indication: Dyspnea. Comparison: July 05, 2018. Portable chest again demonstrates normal heart and lungs. Bony thorax intact with minimal degenerative changes. No new/acute findings.
--- NOTE | 2020-03-29 08:56 | XRAY ---
Indication: Short of breath and chest pain. Elevated d-dimer. Multiple contiguous axial images obtained through the chest using 100 cc Isovue 370 contrast and PE protocol. Comparison: None There is satisfactory opacification of the pulmonary arteries to include the lobar and segmental branches. Nonoccluding pulmonary embolus seen in the posterior segmental branch of the right upper lobe. Heart is not enlarged. Aorta is normal in course and caliber. No pathologic mediastinal/hilar lymphadenopathy. Small hiatal hernia. Lungs are inflated with minimal right middle lobe, lingula, and left base fibrosis/scarring. No suspicious pulmonary mass, infiltrate, or effusion. Bony thorax intact with minimal spinal degenerative changes. Limited upper abdomen demonstrates mild fatty liver and 14.6 cm splenomegaly. Impression: 1. Right upper lobe nonoccluding pulmonary embolus. 2. Incidental small hiatal hernia, fatty liver, and splenomegaly. Comment: Telephone report given to Dr. Cantor in the ER at 0848 hours on March 29, 2020.
[2020-03-29 09:03] VITALS: BP 119/80; PULSE 82
[2020-03-29 09:57] LABS: Appearance CLEAR (CLEAR); Bilirubin NEGATIVE (NEGATIVE); Blood NEGATIVE Ery/ul (0-5); Glucose NEGATIVE (NEGATIVE); Ketones NEGATIVE (NEGATIVE); Leukocyte Esterase NEGATIVE (NEGATIVE); Mucus SLIGHT /HPF (NEGATIVE); Nitrite NEGATIVE (NEGATIVE); Protein,Urine Dip NEGATIVE (Negative); Specific Gravity 1.032 (1.005-1.025); Urobilinogen NEGATIVE mg/dL (0-1); WBC 0-2 /HPF (0-5)
== END 2020-03-29 09:32 | disposition home or self-care (01) ==
LOC: ED 05:40
DX: R06.00 Dyspnea, unspecified (principal); I26.99 Other pulmonary embolism without acute cor pulmonale
CPT/HCPCS: 36000; 36415; 71045; 71260; 80053; 81001; 82550; 83605; 83880; 84484; 85025; 85379; 85610; 85730; 87040; 87086; 93005; 93041; 94760; 96372; 96374; 99284; 99291; J1200; J1650; A9270-GY

== ENCOUNTER 2024-06-05 21:40 | Emergency (ER) | payer MEDICAID, OTHER ==
[2024-06-05 21:53] VITALS: TEMP 97.8
--- NOTE | 2024-06-05 21:58 | ERPHSYRPT ---
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 At 8 PM he took three 200 mg ibuprofen. The paramedics placed an intravenous line and provided him with intravenous Zofran he still has significant pain in the right flank region. Patient's chart states that he is allergic to fentanyl which she agrees with. The chart states he is allergic to iodinated contrast dye/media. However, he disputes this. He has had this contrast dye in the past without adverse effect. Patient states that he is able to take morphine intravenously without adverse effects. Patient denies chest pain. Patient denies shortness of breath. He has had no vomiting but is nauseated. He has had no diarrhea symptoms. He does have a history of kidney stones in the past. Timing/Duration: today Quality: sharpness, stabbing Pain Radiation: flank (Right flank) Severity of Pain-Max: moderate Severity of Pain-Current: moderate Modifying Factors: Improves With: nothing Associated Symptoms: loss of appetite, nausea, No chest pain, No shortness of breath, No vomiting, No weakness Previous symptoms: same symptoms as today (More intense pain today than in the past) Allergies/Adverse Reactions: fentanyl Allergy (Severe, Verified 06/05/24 21:53) Difficulty Breathing Home Medications: No Home Meds [No Home Meds] 1 [facility] [employer] UD 04/15/15 [History] Hx Tetanus, Diphtheria Vaccination/Date Given: Yes (2017) Hx Influenza Vaccination/Date Given: No Hx Pneumococcal Vaccination/Date Given: No Travel Risk - International Travel Have you traveled outside of the country in past 3 weeks: No - Emerging Infectious Disease Are you exhibiting symptoms associated with any current EIDs: No - Review of Systems Constitutional: No Symptoms Eyes: No Symptoms Ears, Nose, & Throat: No Symptoms Respiratory: No Symptoms Cardiac: No Symptoms Abdominal/Gastrointestinal: No Symptoms Genitourinary Symptoms: Flank Pain (Right flank pain) Musculoskeletal: No Symptoms Skin: No Symptoms Neurological: No Symptoms Psychological: No Symptoms Endocrine: No Symptoms Hematologic/Lymphatic: No Symptoms Immunological/Allergic: No Symptoms All Other Systems: Reviewed and Negative - Past Medical History Pertinent Past Medical History: Yes Neurological History: No Pertinent History ENT History: No Pertinent History Cardiac History: No Pertinent History Respiratory History: No Pertinent History Endocrine Medical History: No Pertinent History Musculoskeletal History: Other GI Medical History: No Pertinent History History: No Pertinent History Psycho-Social History: No Pertinent History Male Reproductive Disorders: No Pertinent History Other Medical History: BACK PROBLEMS - Past Surgical History Past Surgical History: No - Social History Smoking Status: Never smoker Exposure to second hand smoke: No Drug Use: none Patient Lives Alone: No - Nursing Vital Signs Nursing Vital Signs: Initial Vital Signs Temperature 97.8 F 06/05/24 21:41 Pulse Rate 82 06/05/24 21:41 Respiratory Rate 18 06/05/24 21:41 Blood Pressure 143/83 06/05/24 21:41 O2 Sat by Pulse Oximetry 95 06/05/24 21:41 Pain Scale Pain Intensity 4 - Physical Exam General Appearance: mild distress (Moderate), alert, anxiety, obese Eye Exam: PERRL/EOMI, eyes nml inspection Ears, Nose, Throat Exam: normal ENT inspection Neck Exam: normal inspection, non-tender, supple, full range of motion Respiratory Exam: normal breath sounds, lungs clear, airway intact, No chest tenderness, No respiratory distress Cardiovascular Exam: regular rate/rhythm, normal heart sounds, normal peripheral pulses Gastrointestinal/Abdomen Exam: soft, normal bowel sounds, No tenderness Back Exam: normal inspection, normal range of motion, CVA tenderness (Mild right side to percussion), No vertebral tenderness Extremity Exam: normal inspection, normal range of motion, pelvis stable Neurologic Exam: alert, oriented x 3, cooperative, sensation nml Skin Exam: normal color, warm, dry Lymphatic Exam: No adenopathy SpO2 Interpretation: normal O2 Delivery: Room Air - Course Nursing assessment & vital signs reviewed: Yes Ordered Tests: Active Orders 24 hr Category Date Time Status IV Insertion STAT Care 06/05/24 21:58 Active ABDOMEN AND PELVIS W/0 CONTRAS [CT] Stat Exams 06/05/24 21:58 Completed AMYLASE Stat Lab 06/05/24 22:00 Completed CBC W DIFF Stat Lab 06/05/24 22:00 Completed CMP Stat Lab 06/05/24 22:00 Completed CULTURE,URINE Stat Lab 06/05/24 23:15 Received LIPASE Stat Lab 06/05/24 22:00 Completed UA W/RFX UR CULTURE Stat Lab 06/05/24 23:15 Completed Medication Summary Discontinued Medications Generic Name Dose Route Start Last Admin Trade Name Camila PRN Reason Stop Dose Admin Sodium Chloride 1,000 mls @ 999 mls/hr 06/05/24 21:58 06/05/24 22:10 Sodium Chloride 0.9% 1000 Ml IV 06/05/24 22:58 999 mls/hr .Q1H1M STA Administration Sodium Chloride Confirm 06/05/24 22:06 Sodium Chloride 0.9% 1000 Ml Administered 06/05/24 22:07 Dose 1,000 mls @ ud .ROUTE .STK-MED ONE Levofloxacin 500 mg 06/05/24 23:29 Levofloxacin 500 Mg Tablet PO 06/05/24 23:30 STAT ONE Morphine Sulfate 6 mg 06/05/24 21:58 06/05/24 22:09 Morphine Sulfate 10 Mg/Ml Injection IV 06/05/24 21:59 6 mg STAT ONE Administration Morphine Sulfate Confirm 06/05/24 22:06 Morphine Sulfate 10 Mg/Ml Injection Administered 06/05/24 22:07 Dose 10 mg .ROUTE .STK-MED ONE Prochlorperazine Edisylate 5 mg 06/05/24 21:58 Prochlorperazine Edisylate 10 Mg/2 Ml Vial IV 06/05/24 21:59 STAT ONE Prochlorperazine Edisylate Confirm 06/05/24 22:06 Prochlorperazine Edisylate 10 Mg/2 Ml Vial Administered 06/05/24 22:07 Dose 10 mg .ROUTE .STK-MED ONE Lab/Rad Data: Laboratory Result Diagrams 06/05/24 22:00 06/05/24 22:00 Laboratory Results 06/05/24 06/05/24 06/05/24 Range/Units 23:15 22:00 22:00 WBC 9.4 H (4.23-9.07) x10^3/uL RBC 5.33 (4.63-6.08) x10^6/uL Hgb 15.2 (13.7-17.5) g/dL Hct 46.4 (40.1-51.0) % MCV 87.1 (79.0-92.2) fL MCH 28.5 (25.7-32.2) pg MCHC 32.8 (32.3-36.5) g/dL RDW 12.7 (11.6-14.4) % Plt Count 335 (163-337) x10^3/uL MPV 9.6 (9.4-12.4) fL Gran % 66.4 (34.0-67.9) % Immature Gran % (Auto) 0.5 H (0.001-0.429) % Nucleat RBC Rel Count 0.0 (0.00-0.2) % Eos # (Auto) 0.34 (0.04-0.54) x10^3/uL Immature Gran # (Auto) 0.05 H (0.001-0.031) x10^3u/L Absolute Lymphs (auto) 2.03 (1.32-3.57) x10^3/uL Absolute Monos (auto) 0.71 (0.30-0.82) x10^3/uL Absolute Nucleated RBC 0.00 (0.00-0.012) x10^3u/L Lymphocytes % 21.5 L (21.8-53.1) % Monocytes % 7.5 (5.3-12.2) % Eosinophils % 3.6 (0.8-7.0) % Basophils % 0.5 (0.2-1.2) % Absolute Granulocytes 6.26 H (1.78-5.38) x10^3/uL Basophils # 0.05 (0.01-0.08) x10^3/uL Sodium 140 (135-145) mmol/L Potassium 4.0 (3.5-5.1) mmol/L Chloride 104 (98-107) mmol/L Carbon Dioxide 25 (22-30) mmol/L Anion Gap 14.5 (5-15) MEQ/L BUN 15 (9-20) mg/dL Creatinine 1.47 H (0.66-1.25) mg/dL Estimated GFR 59.2 ML/MIN Glucose 123 H (74-106) mg/dL Calcium 9.7 (8.4-10.2) mg/dL Total Bilirubin 0.40 (0.2-1.3) mg/dL AST 26 (17-59) U/L ALT 30 (0-50) U/L Alkaline Phosphatase 94 (38-126) U/L Serum Total Protein 7.9 (6.3-8.2) g/dL Albumin 4.4 (3.5-5.0) g/dL Amylase 78 (30-110) U/L Lipase 119 (23-300) U/L Urine Color Yellow (Yellow) Urine Appearance Clear (Clear) Urine pH 5.5 (4.6-8.0) Ur Specific [place] 1.015 (1.005-1.030) Urine Protein Negative (Negative) Urine Glucose (UA) Negative (Negative) mg/dL Urine Ketones Negative (Negative) Urine Blood Small A (Negative) Urine Nitrite Negative (Negative) Urine Bilirubin Negative (Negative) Urine Urobilinogen 0.2 (0.2) mg/dL Ur Leukocyte Esterase Trace A (Negative) U Hyaline Cast (Auto) NONE SEEN (0-2) /LPF Urine Microscopic RBC 0-2 (0-5) /HPF Urine Microscopic WBC 6-10 A (0-5) /HPF Ur Epithelial Cells None Seen (None Seen) /HPF Urine Bacteria None Seen (None Seen) /HPF Urine Culture Reflexed YES (NO) - Progress Progress: improved, pain not gone completely Progress Note: 06/05/24 21:57 My medical decision making and the assignment of moderate complexity to this patient's medical issue today is based on review of the patient's past medical history, review the patient's medication list, reviewed patient drug allergy list, history present illness and physical findings on examination. The workup in this patient includes placement of a intravenous line, infusion with normal saline solution, infusion of morphine, infusion of Compazine, CBC, CMP, amylase, lipase, urinalysis, CT scan of the abdomen pelvis without contrast. Differential diagnosis includes but is not limited to pancreatitis, bowel obstruction, perforated bowel, acute appendicitis, ureterolithiasis, pyelonephritis, acute abdominal aortic aneurysm abnormality 06/06/24 00:21 The patient's sister added additional, independent history. That includes that the patient is no longer on Eliquis or any medications whatsoever. She also states that the patient's father has similar issues with recurrent ureterolithiasis and has difficulty breaking down uric acid. He also sees urologist Dr. De León out of [facility]. I interpreted the patient's laboratory data results. Based on the laboratory data results, the patient has a mild urinary tract infection. The CT scan of the abdomen pelvis without contrast was interpreted by the radiologist and I reviewed the impression. The impression states 14 x 10 mm obstructing calculus in the right renal pelvis. There is moderate proximal hydronephrosis with mild perinephric and peripelvic fat stranding. There is a 7 mm calculus in in the inferior pole calyx of the right kidney. These results were discussed with the patient and his sister. The patient's pain is well-controlled at this moment in time. I offered to transfer the patient to an outpatient facility where there is a urologist. I also offered them to follow-up as an outpatient with a urologist today, 06/06/2024, to arrange an outpatient appointment. Patient will be provided prescription of [place] 5/325, take ibuprofen 600 mg 3 times a day with food and will be provided a prescription for Cipro 500 mg orally 1 twice a day for 7 days. If the patient's pain worsens before the urologist appointment, the patient was told he may return to our facility or go directly to the facility where the urologist he will be seeing has privileges at. They are to go to the emergency department of that facility. The patient has opted for outpatient management. 06/06/24 00:26 I have opted not to place this patient on Flomax as this stone that is causing the obstruction is very large. I do not believe that this patient's ureteral calculus or ureter will respond beneficially for him. 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 Take your pain medicine and antibiotics as prescribed. Call an outpatient urologist, as we discussed, later today, 06/06/2024, to arrange an outpatient follow-up appointment. If you are pain worsens before your urology appointment, you may return to our emergency department knowing we do not have urology services, or, you may proceed directly to the emergency department of the facility where the urologist has privileges and practices at. Prescriptions: Hydrocodone/APAP 5/325 [[place] 5/325 mg] 1 each PO Q8H PRN PRN #10 tablet MDD 3 PRN Reason: Pain Ciprofloxacin [Cipro 500 MG] 500 mg PO BID #14 tablet
[2024-06-05 22:02] LABS: Absolute Neutrophil Ct (ANC) 6.26 x10^3/uL (1.78-5.38); BASOPHIL % 0.5 % (0.2-1.2); Basophil (Absolute #) 0.05 x10^3/uL (0.01-0.08); Eosinophil % 3.6 % (0.8-7.0); Eosinophil (Absolute #) 0.34 x10^3/uL (0.04-0.54); Hematocrit 46.4 % (40.1-51.0); Hemoglobin 15.2 g/dL (13.7-17.5); IMMATURE GRAN # 0.05 x10^3u/L (0.001-0.031); IMMATURE GRAN % 0.5 % (0.001-0.429); Lymphocyte (Absolute #) 2.03 x10^3/uL (1.32-3.57); Lymphocytes % 21.5 % (21.8-53.1); Mean Cell Volume 87.1 fL (79.0-92.2); Mean Corpuscular Hemoglobin 28.5 pg (25.7-32.2); Mean Corpuscular Hgb Concent. 32.8 g/dL (32.3-36.5); Mean Platelet Volume 9.6 fL (9.4-12.4); Monocyte (Absolute #) 0.71 x10^3/uL (0.30-0.82); Monocytes % 7.5 % (5.3-12.2); Neutrophil % 66.4 % (34.0-67.9); Platelet Count 335 x10^3/uL (163-337); Red Blood Count 5.33 x10^6/uL (4.63-6.08); Red Cell Distribution Width 12.7 % (11.6-14.4); White Blood Count 9.4 x10^3/uL (4.23-9.07)
[2024-06-05] MEDS ORDERED: Compazine 10 MG/2 ML ONE (22:06)
[2024-06-05] MEDS ORDERED: MORPHINE SULFATE 10 MG/ML ONE (22:06)
[2024-06-05] MEDS ORDERED: Sodium Chloride 0.9% 1000 ML 1,000 ML ONE (22:06)
[2024-06-05] MEDS: MORPHINE SULFATE 10 MG/ML IV ONE (22:09)
[2024-06-05] MEDS: Sodium Chloride 0.9% 1000 ML 1,000 ML IV STA (22:10)
[2024-06-05 22:15] LABS: ALBUMIN 4.4 g/dL (3.5-5.0); ANION GAP 14.5 MEQ/L (5-15); BILIRUBIN,TOTAL 0.4 mg/dL (0.2-1.3); Calcium 9.7 mg/dL (8.4-10.2); Creatinine 1 1.47 mg/dL (0.66-1.25); EST GLOMERULAR FILTRATION RATE 59.2 ML/MIN; Total Protein 7.9 g/dL (6.3-8.2)
[2024-06-05 23:26] VITALS: RESP 16
[2024-06-05 23:26] LABS: Appearance Clear (Clear); Bacteria None Seen /HPF (None Seen); Bilirubin Negative (Negative); Blood Small (Negative); Epithelial Cells None Seen /HPF (None Seen); Glucose, Urine Negative (Negative); Hyaline Casts NONE SEEN /LPF (0-2); Ketones Negative (Negative); Leukocyte Esterase Trace (Negative); Nitrite Negative (Negative); Ph 5.5 (4.6-8.0); Protein,Urine Dip Negative (Negative); RBC 0-2 /HPF (0-5); Specific Gravity 1.015 (1.005-1.030); Urobilinogen 0.2 mg/dL (0.2)
--- NOTE | 2024-06-05 23:45 | XRAY ---
CLINICAL HISTORY: Right flank pain COMPARISON: None. TECHNIQUE: Contiguous axial images were obtained from the level of the diaphragm to the pubic symphysis without intravenous or oral contrast. Coronal and sagittal reconstructions were likewise performed and indicated to increase the sensitivity for detecting clinically relevant pathology. CT scan was performed according to ALARA (as low as reasonably achievable). FINDINGS: The visualized lung bases are clear. Evaluation of the abdominal and pelvic visceral organs is limited without intravenous contrast. Liver is enlarged measuring 18 cm in craniocaudal extent. The gallbladder is present. The unenhanced spleen is grossly unremarkable. The unenhanced pancreas is grossly unremarkable. The adrenal glands are grossly unremarkable. 14 x 10 mm calculus is noted in the right renal pelvis. Average CT value images 1000- 1300 HU. Moderate proximal hydronephrosis noted. Mild perinephric and buffy-pelvic fat stranding is noted. Another 7 mm calculus is noted in the inferior pole calyx of right kidney. 1.5 mm concretion is also seen adjacent to it. The ureters are normal in caliber. No evidence of focal or diffuse bowel wall thickening or evidence of bowel obstruction is seen. The appendix appears normal. The urinary bladder is normal in contour. No adenopathy or fluid collections are seen. Pelvic viscera are grossly unremarkable. The aorta is normal in caliber. No aggressive appearing osseous lesions are identified. IMPRESSION: 1. 14 x 10 mm obstructing calculus in the right renal pelvis as described above. New finding. 2. Another 7 mm calculus is noted in the inferior pole calyx of right kidney. 1.5 mm concretion is also seen adjacent to it. New finding. 3. Hepatomegaly measuring 18 cm. Electronically Signed by: Bandar Ortega MD. (06/05/2024 23:41:29 EST)
[2024-06-06] MEDS ORDERED: TORAdol 30 mg Injection ONE (00:31)
[2024-06-06] MEDS ORDERED: Levofloxacin 500 MG Tablet ONE (00:31)
[2024-06-06] MEDS ORDERED: MORPHINE SULFATE 4 MG INJ ONE (00:32)
[2024-06-06] MEDS: TORAdol 30 mg Injection IV ONE (00:35)
[2024-06-06] MEDS: Levofloxacin 500 MG Tablet PO ONE (00:35)
[2024-06-06] MEDS: MORPHINE SULFATE 4 MG INJ IV ONE (00:35)
[2024-06-06] MEDS: Compazine 10 MG/2 ML IV ONE (00:43)
[2024-06-06 00:45] VITALS: BP 132/87; PULSE 61; O2SAT 97
== END 2024-06-06 00:58 | disposition home or self-care (01) ==
LOC: ED 21:40
DX: N13.2 Hydronephrosis with renal and ureteral calculous obstruction (principal); R10.9 Unspecified abdominal pain; Z79.891 Long term (current) use of opiate analgesic; Z79.899 Other long term (current) drug therapy
CPT/HCPCS: 36415; 74176; 80053; 81001; 82150; 83690; 85025; 87086; 96374; 96375; 96376; 99284; J1885; J2270; A9270-GY